=== PATIENT | male | born 1940 | race Caucasian/White ===

== ENCOUNTER → 2016-06-20 | Outpatient (CLI) | payer BC ==
[~2016-06-20] MED LIST: SIMV5TAB2 PO; SULF800T23 PO; ZNTT/150 PO; ZYRUNK; [UNRECOGNIZED DRUG - REMARK]
[2016-06-20 09:46] LABS: BASO % 0.8 %; BASO ABS # 0.04 K/uL (0-0.2); COMPLETE YES; EOS % 2.7 %; HEMATOCRIT 44.7 % (42-52); LYMPH % 28.8 %; LYMPH ABS # 1.41 K/uL (1.2-3.4); MEAN CELL VOLUME 90.3 fL (80-100); MEAN CORPUSCULAR HEMOGLOBIN 30.7 pg (25-34); NEUT % 57.7 %; PLATELET COUNT 188 K/uL (130-400); RED BLOOD COUNT 4.95 M/uL (4.7-6.1); WHITE BLOOD COUNT 4.89 K/uL (4.8-10.8)
[2016-06-20 10:05] LABS: CHOLESTEROL/HDL RATIO 2.5
[2016-06-20 10:09] LABS: ESTIMATED AVERAGE GLUCOSE 114 mg/dl; HA1C FLAG Normal (Normal)
--- NOTE | 2016-06-25 13:24 | CODING QUERY MEDICAL NECESSITY ---
SUPPORTING DIAGNOSIS NEEDED A supporting diagnosis is required for the test/procedure performed on this patient in order for us to be reimbursed by the patient's insurance. Please provide a supporting diagnosis for the following test/procedure listed below next to the test name along with your signature. *If there is no additional diagnosis for this patient that would support the following test/procedure please document that below next to the test/procedure. Test(s)/Procedure(s) that require a supporting diagnosis: DOS 06/20 * Hba1c DIAGNOSIS: * Lipids DIAGNOSIS: Provider Signature: Date: Thank you Leonora Flor Health Information Management Once completed, please kindly fax back to [phone] For questions please call [phone]
== END | disposition home or self-care (01) ==
LOC: C.LAB1850 07:54
PROVIDERS: ATTEND Internal Medicine
DX: C67.9 Malignant neoplasm of bladder, unspecified (principal); R73.9 Hyperglycemia, unspecified; E78.00 Pure hypercholesterolemia, unspecified

== ENCOUNTER → 2016-07-03 | Outpatient (CLI) | payer BC | END | disposition home or self-care (01) | LOC: C.LAB1850 11:06 | PROVIDERS: ATTEND Urology | DX: R97.20 Elevated prostate specific antigen [PSA] (principal) ==

== ENCOUNTER 2016-08-02 09:29 | Emergency (ER) | payer BC ==
[~2016-08-02] VITALS: Ht 177.8 cm; Wt 88.4 kg
[~2016-08-02 09:29] MED LIST changes: -SIMV5TAB2 PO; -ZNTT/150 PO
[2016-08-02 09:34] VITALS: TEMP 37; Ht 177.8 cm; Wt 88.4 kg
[2016-08-02 10:22] LABS: BASO % 0.2 %; BASO ABS # 0.01 K/uL (0-0.2); COMPLETE YES; EOS % 1.6 %; LYMPH % 24.5 %; LYMPH ABS # 1.07 K/uL (1.2-3.4); MEAN CELL VOLUME 90.2 fL (80-100); MEAN CORPUSCULAR HEMOGLOBIN 30.7 pg (25-34); MEAN CORPUSCULAR HGB CONC 34.1 g/dl (32-36); MEAN PLATELET VOLUME 10.5 fL (7.4-10.4); MONO % 6.4 %; NEUT % 67.3 %; PLATELET COUNT 189 K/uL (130-400); RED BLOOD COUNT 4.88 M/uL (4.7-6.1); WHITE BLOOD COUNT 4.37 K/uL (4.8-10.8)
--- NOTE | 2016-08-02 10:22 | DIAGNOSTIC IMAGING REPORT ---
HEAD CT NONCONTRAST CT DOSE: 614.27 mGy.cm HISTORY: Pain. Neuropathy. left sided numbness TECHNIQUE: Multiaxial CT images of the head were performed without the use of intravenous contrast. Comparison: None. Findings: The paranasal sinuses and mastoid air cells are clear. The calvarium and skull base are intact. The ventricles and sulci are within normal limits. There is no mass, hematoma, midline shift, or acute infarct. Impression: No acute intracranial abnormality. Electronically signed by: Brian Hawkins M.D. 08/02/2016 10:21 AM Dictated Date/Time: 08/02/2016 10:20 AM
[2016-08-02 10:43] LABS: ALT/SGPT 31 U/L (12-78); AST/SGOT 22 U/L (15-37); BLOOD UREA NITROGEN 13 mg/dl (7-18); BUN/CREATININE RATIO 13.8 (10-20); CALCIUM 8.8 mg/dl (8.5-10.1); CARBON DIOXIDE 24 mmol/L (21-32); CHLORIDE 109 mmol/L (98-107); CREATININE 0.95 mg/dl (0.60-1.40); GLUCOSE 111 mg/dl (70-99); POTASSIUM 3.6 mmol/L (3.5-5.1); SODIUM 144 mmol/L (136-145)
--- NOTE | 2016-08-02 10:45 | DIAGNOSTIC IMAGING REPORT ---
TWO VIEW CHEST CLINICAL HISTORY: Left-sided numbness. FINDINGS: PA and lateral chest radiographs are obtained. No prior studies are available for comparison at the time of dictation. The heart is top normal for projection. There is elevation of the right hemidiaphragm with mild bibasilar atelectasis. No airspace consolidation is seen typical for pneumonia and there is no pleural effusion. No pneumothorax is identified. The skeletal structures are osteopenic. Mild degenerative change is noted in the thoracic spine. IMPRESSION: No active disease in the chest. Electronically signed by: Tk Loera M.D. 08/02/2016 10:43 AM Dictated Date/Time: 08/02/2016 10:42 AM
[2016-08-02 10:48] LABS: ALB/GLOB RATIO 1.2 (0.9-2); ALKALINE PHOSPHATASE 127 U/L (45-117)
[2016-08-02] MEDS ORDERED: ZNTT/150 PO (10:55)
[2016-08-02] MEDS ORDERED: SIMV5TAB2 PO (10:55)
--- NOTE | 2016-08-02 13:13 | EMERGENCY ROOM VISIT NOTE ---
History Report prepared by Stephon: Chanda Park Under the Supervision of: Dr. Vinh Spencer M.D. First contact with patient: 09:43 Chief Complaint: NEURO SYMPTOMS Stated Complaint: FACIAL NUMBNESS Nursing Triage Summary: Pt arrives via EMS from home Pt c/o left thight numbness that started last week Pt reports numbness is "creeping" up the left side of body all the way to left side of face saw chiropractor last week hx anxiety History of Present Illness The patient is a 76 year old male who presents to the Emergency Room with complaints of worsening neurological symptoms for the past week. 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 He picks her up multiples times a day to move her around the house. About a week ago he developed some left-sided back pain that he thought was probably due to lifting his . He had some numbness radiating into his left leg.. The patient saw his chiropractor for his symptoms who thought that his symptoms would improve with time. The patient states that his back pain has completely resolved. His numbness has worsened since seeing his chiropractor. The patient reports numbness radiating from his back all the way down his right leg and over the last few days he has had numbness radiating up into the right side of his face. Over the weekend the patient lost his front tooth. It was an implant that fell out. He has starting having some slurred speech but thought that it was due to his missing tooth. The patient denies any weakness or abdominal pain. He was brought to the ED by ambulance. Source of History: patient Onset: 1 week ago Position: other (global) Quality: other (neurological) Timing: worsening Associated Symptoms: + numbness, No abdominal pain, No back pain, No weakness Note: Pt reports some slurred speech. Review of Systems All systems have been listed, reviewed, and are negative other than those previously mentioned. Please see Additional Medical History Sheet. 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 Social History Smoking Status: Never Smoker Smokeless Tobacco Use: No Alcohol Use: none Marital Status: Housing Status: lives with significant other Occupation Status: retired Current/Historical Medications Scheduled Ranitidine (Zantac), 150 MG PO BID Simvastatin (Zocor), 5 MG PO QPM Allergies Coded Allergies: NO KNOWN DRUG ALLERGIES (Verified Allergy, Unknown, ., 08/02/16) Physical Exam Vital Signs Date Time Temp Pulse Resp B/P Pulse Ox O2 Delivery O2 Flow Rate FiO2 08/02/16 14:00 77 18 114/92 98 Room Air 08/02/16 11:43 75 18 125/95 98 Room Air 08/02/16 09:34 37.0 102 18 141/98 97 Room Air Physical Exam GENERAL: Patient awake, alert, oriented x 3. Patient follows commands. Patient does not appear toxic. Patient is adequately hydrated and well- nourished. SKIN: No erythema, pallor, cyanosis or rash HEENT: Normal head, pupils equal, reactive to light and accommodation. Ears normal. Oral cavity and posterior pharynx appear normal. Neck: Without adenopathy, no neck vein distention. LUNGS: Clear to auscultation. No wheezes, no rales, no rhonchi. HEART: No murmurs. No gallops. No rubs ABDOMEN: No masses, no rebound, no hepatomegaly or splenomegaly. EXTREMITIES: No signs of trauma. No pedal or pretibial edema. No calf or thigh tenderness. NEUROLOGIC: MARINA stroke score will be implemented by the nurse. Cranial nerves II -XII within normal limits. No gross motor sensory function deficits. Medical Decision & Procedures ER Provider Diagnostic Interpretation: Radiology results as stated below per my review and radiologist interpretation: HEAD CT NONCONTRAST CT DOSE: 614.27 mGy.cm HISTORY: Pain. Neuropathy. left sided numbness TECHNIQUE: Multiaxial CT images of the head were performed without the use of intravenous contrast. Comparison: None. Findings: The paranasal sinuses and mastoid air cells are clear. The calvarium and skull base are intact. The ventricles and sulci are within normal limits. There is no mass, hematoma, midline shift, or acute infarct. Impression: No acute intracranial abnormality. Electronically signed by: Brian Hawkins M.D. 08/02/2016 10:21 AM Dictated Date/Time: 08/02/2016 10:20 AM TWO VIEW CHEST CLINICAL HISTORY: Left-sided numbness. FINDINGS: PA and lateral chest radiographs are obtained. No prior studies are available for comparison at the time of dictation. The heart is top normal for projection. There is elevation of the right hemidiaphragm with mild bibasilar atelectasis. No airspace consolidation is seen typical for pneumonia and there is no pleural effusion. No pneumothorax is identified. The skeletal structures are osteopenic. Mild degenerative change is noted in the thoracic spine. IMPRESSION: No active disease in the chest. Electronically signed by: Tk Loera M.D. 08/02/2016 10:43 AM Dictated Date/Time: 08/02/2016 10:42 AM MR ANGIOGRAM OF THE BRAIN CLINICAL HISTORY: Left-sided weakness. Facial numbness. COMPARISON STUDY: MRI of the brain performed concurrently on 08/02/2016. TECHNIQUE: 3-D [id number] MR angiography of the intracranial circulation is performed. 3-D tumble views are created and assessed. IV contrast was not administered for this examination. FINDINGS: The internal carotid arteries are widely patent bilaterally, as are the anterior and middle cerebral arteries. The vertebrobasilar system and posterior cerebral arteries are widely patent. The left vertebral artery is dominant. There is no aneurysm, high-grade stenosis, or focal vessel cutoff seen throughout the intracranial circulation. The brain parenchyma is normal as visualized. IMPRESSION: Unremarkable MR angiogram of the brain. Electronically signed by: Tk Loera M.D. 08/02/2016 1:22 PM Dictated Date/Time: 08/02/2016 1:20 PM ULTRASOUND OF THE CAROTID ARTERIES CLINICAL HISTORY: Left-sided weakness. COMPARISON STUDY: No priors. TECHNIQUE: Real-time, grayscale, and color Doppler sonography of the carotid arteries is performed. Images are reviewed in the transverse and longitudinal planes. FINDINGS: Blood pressure in the right arm measures 158/94 and blood pressure in the left arm measures 144/87. The carotid arteries are patent bilaterally and demonstrate antegrade flow. There is minimal atherosclerotic plaque identified. Normal doppler arterial waveforms are seen throughout. Velocity measurements are listed below. Common carotid peak systolic velocity (cm/sec): RIGHT: 74 LEFT: 66 ICA proximal peak systolic velocity (cm/sec): RIGHT: 49 LEFT: 39 ICA mid peak systolic velocity (cm/sec): RIGHT: 50 LEFT: 50 ICA distal peak systolic velocity (cm/sec): RIGHT: 64 LEFT: 57 ICA/CC peak systolic ratio: RIGHT: 0.9 LEFT: 0.9 Antegrade flow was shown in the vertebral arteries. The external carotid arteries are patent. IMPRESSION: 1. There is no sonographic evidence of hemodynamically significant stenosis in the right or left carotid arterial system. 2. Antegrade flow is shown in the vertebral arteries. Electronically signed by: Tk Loera M.D. 08/02/2016 2:39 PM Dictated Date/Time: 08/02/2016 2:38 PM MRI OF THE BRAIN WITHOUT AND WITH IV CONTRAST CLINICAL HISTORY: left sided weakness neuropathy COMPARISON STUDY: No previous studies for comparison. TECHNIQUE: Utilizing a 1.5 Silvia magnet and dedicated coil, multiplanar, multiecho imaging of the brain was performed pre and postcontrast administration. IV administration of 8.5 mL of Gadavist contrast was uneventful. FINDINGS: No evidence for an acute ischemic insult. Several small foci of increased signal within the periventricular deep white matter regions. This is unremarkable for age and is consistent with minimal chronic small vessel change. No evidence for abnormal postcontrast enhancement. Ventricular system is midline. Sella and parasellar regions are unremarkable. IMPRESSION: 1. No evidence for an acute ischemic insult. 2. Negative MRI of the brain for age Electronically signed by: Brian Hawkins M.D. 08/02/2016 1:24 PM Dictated Date/Time: 08/02/2016 1:21 PM Laboratory Results 08/02/16 10:00 Red Blood Count 4.88, Mean Corpuscular Volume 90.2, Mean Corpuscular Hemoglobin 30.7, Mean Corpuscular Hemoglobin Concent 34.1, Mean Platelet Volume 10.5, Neutrophils (%) (Auto) 67.3, Lymphocytes (%) (Auto) 24.5, Monocytes (%) (Auto) 6.4, Eosinophils (%) (Auto) 1.6, Basophils (%) (Auto) 0.2, Neutrophils # (Auto) 2.94, Lymphocytes # (Auto) 1.07, Monocytes # (Auto) 0.28, Eosinophils # (Auto) 0.07, Basophils # (Auto) 0.01 08/02/16 10:00 Test 08/02/16 10:00 White Blood Count 4.37 K/uL (4.8-10.8) Red Blood Count 4.88 M/uL (4.7-6.1) Hemoglobin 15.0 g/dL (14.0-18.0) Hematocrit 44.0 % (42-52) Mean Corpuscular Volume 90.2 fL (80-100) Mean Corpuscular Hemoglobin 30.7 pg (25-34) Mean Corpuscular Hemoglobin Concent 34.1 g/dl (32-36) Platelet Count 189 K/uL (130-400) Mean Platelet Volume 10.5 fL (7.4-10.4) Neutrophils (%) (Auto) 67.3 % Lymphocytes (%) (Auto) 24.5 % Monocytes (%) (Auto) 6.4 % Eosinophils (%) (Auto) 1.6 % Basophils (%) (Auto) 0.2 % Neutrophils # (Auto) 2.94 K/uL (1.4-6.5) Lymphocytes # (Auto) 1.07 K/uL (1.2-3.4) Monocytes # (Auto) 0.28 K/uL (0.11-0.59) Eosinophils # (Auto) 0.07 K/uL (0-0.5) Basophils # (Auto) 0.01 K/uL (0-0.2) RDW Standard Deviation 43.4 fL (36.4-46.3) RDW Coefficient of Variation 13.1 % (11.5-14.5) Immature Granulocyte % (Auto) 0.0 % Immature Granulocyte # (Auto) 0.00 K/uL (0.00-0.02) Anion Gap 11.0 mmol/L (3-11) Est Creatinine Clear Calc Drug Dose 75.2 ml/min Estimated GFR () 90.4 Estimated GFR (Non- 78.0 BUN/Creatinine Ratio 13.8 (10-20) Calcium Level 8.8 mg/dl (8.5-10.1) Total Bilirubin 0.7 mg/dl (0.2-1) Aspartate Amino Transf (AST/SGOT) 22 U/L (15-37) Alanine Aminotransferase (ALT/SGPT) 31 U/L (12-78) Alkaline Phosphatase 127 U/L (45-117) Troponin I < 0.015 ng/ml (0-0.045) Total Protein 6.7 gm/dl (6.4-8.2) Albumin 3.6 gm/dl (3.4-5.0) Globulin 3.1 gm/dl (2.5-4.0) Albumin/Globulin Ratio 1.2 (0.9-2) Laboratory results as stated above per my review. ECG Indication: other (stroke-like) Rate (beats per minute): 94 Rhythm: normal sinus Findings: no acute ischemic change, no ectopy ED Course 0943: Past medical records reviewed. The patient was evaluated in room B7. A complete history and physical examination was performed. 1129: I reassessed the patient at this time. He is doing well. I updated him on the results. He will be getting an MRI, MRA, and carotid US today. 1515: I reassessed the patient at this time. He is feeling better and resting comfortably. His facial numbness has completely resolved. I discussed the results and treatment plan with the patient. I answered all pertaining questions that he had. He expressed understanding and verbalized agreement. The patient will be discharged home. He was encouraged to follow-up with his PCP. Medical Decision Differential diagnoses TIA, CVA, cervical radiculopathy, low back pain. The patient is here with left facial numbness which extends that his left arm. There is also some question of garbled speech. All of those symptoms resolved while here in the ED. The patient had multiple labs and imaging performed. Prior to some of the more extensive imaging I did request that the patient be admitted but he declined saying that he had to take care of his at home. The patient will be started on baby aspirin. He is to follow up closely with his family physician. I remain concerned about a possible stroke in the near future. This was conveyed to the patient and his son. I again offered admission after completion of his studies but again he declined. Impression Primary Impression: Transient ischemic attack Scribe Attestation The scribe's documentation has been prepared under my direction and personally reviewed by me in its entirety. I confirm that the note above accurately reflects all work, treatment, procedures, and medical decision making performed by me. Departure Information Dispostion Home / Self-Care Referrals Julián Damon M.D. (PCP) Forms HOME CARE DOCUMENTATION FORM, IMPORTANT VISIT INFORMATION, WORK / SCHOOL INSTRUCTIONS Patient Instructions My [facility], TIA Additional Instructions 81 mg of aspirin daily. Continue your other current medications as prescribed. Follow-up with Dr. Damon within the next several days. Return here sooner if any of your symptoms get worse. Problem Qualifiers Primary Impression: Transient ischemic attack Transient cerebral ischemia type: unspecified Qualified Codes: G45.9 - Transient cerebral ischemic attack, unspecified
[2016-08-02] MEDS ORDERED: GADAVIST IV PRN (13:15)
--- NOTE | 2016-08-02 13:24 | DIAGNOSTIC IMAGING REPORT ---
MR ANGIOGRAM OF THE BRAIN CLINICAL HISTORY: Left-sided weakness. Facial numbness. COMPARISON STUDY: MRI of the brain performed concurrently on 08/02/2016. TECHNIQUE: 3-D [id number] MR angiography of the intracranial circulation is performed. 3-D tumble views are created and assessed. IV contrast was not administered for this examination. FINDINGS: The internal carotid arteries are widely patent bilaterally, as are the anterior and middle cerebral arteries. The vertebrobasilar system and posterior cerebral arteries are widely patent. The left vertebral artery is dominant. There is no aneurysm, high-grade stenosis, or focal vessel cutoff seen throughout the intracranial circulation. The brain parenchyma is normal as visualized. IMPRESSION: Unremarkable MR angiogram of the brain. Electronically signed by: Tk Loera M.D. 08/02/2016 1:22 PM Dictated Date/Time: 08/02/2016 1:20 PM
--- NOTE | 2016-08-02 13:26 | DIAGNOSTIC IMAGING REPORT ---
MRI OF THE BRAIN WITHOUT AND WITH IV CONTRAST CLINICAL HISTORY: left sided weakness neuropathy COMPARISON STUDY: No previous studies for comparison. TECHNIQUE: Utilizing a 1.5 Silvia magnet and dedicated coil, multiplanar, multiecho imaging of the brain was performed pre and postcontrast administration. IV administration of 8.5 mL of Gadavist contrast was uneventful. FINDINGS: No evidence for an acute ischemic insult. Several small foci of increased signal within the periventricular deep white matter regions. This is unremarkable for age and is consistent with minimal chronic small vessel change. No evidence for abnormal postcontrast enhancement. Ventricular system is midline. Sella and parasellar regions are unremarkable. IMPRESSION: 1. No evidence for an acute ischemic insult. 2. Negative MRI of the brain for age Electronically signed by: Brian Hawkins M.D. 08/02/2016 1:24 PM Dictated Date/Time: 08/02/2016 1:21 PM
--- NOTE | 2016-08-02 14:40 | DIAGNOSTIC IMAGING REPORT ---
ULTRASOUND OF THE CAROTID ARTERIES CLINICAL HISTORY: Left-sided weakness. COMPARISON STUDY: No priors. TECHNIQUE: Real-time, grayscale, and color Doppler sonography of the carotid arteries is performed. Images are reviewed in the transverse and longitudinal planes. FINDINGS: Blood pressure in the right arm measures 158/94 and blood pressure in the left arm measures 144/87. The carotid arteries are patent bilaterally and demonstrate antegrade flow. There is minimal atherosclerotic plaque identified. Normal doppler arterial waveforms are seen throughout. Velocity measurements are listed below. Common carotid peak systolic velocity (cm/sec): RIGHT: 74 LEFT: 66 ICA proximal peak systolic velocity (cm/sec): RIGHT: 49 LEFT: 39 ICA mid peak systolic velocity (cm/sec): RIGHT: 50 LEFT: 50 ICA distal peak systolic velocity (cm/sec): RIGHT: 64 LEFT: 57 ICA/CC peak systolic ratio: RIGHT: 0.9 LEFT: 0.9 Antegrade flow was shown in the vertebral arteries. The external carotid arteries are patent. IMPRESSION: 1. There is no sonographic evidence of hemodynamically significant stenosis in the right or left carotid arterial system. 2. Antegrade flow is shown in the vertebral arteries. Electronically signed by: Tk Loera M.D. 08/02/2016 2:39 PM Dictated Date/Time: 08/02/2016 2:38 PM
[2016-08-02 15:32] VITALS: BP 142/95; PULSE 85; O2SAT 100
== END 2016-08-02 15:42 | disposition home or self-care (01) ==
LOC: EDBD 09:29 → C.EDB 09:31
DX: G45.9 Transient cerebral ischemic attack, unspecified (principal); G30.9 Alzheimer's disease, unspecified; F02.80 Dementia in other diseases classified elsewhere, unspecified severity, without behavioral disturbance, psychotic disturbance, mood disturbance, and anxiety; E78.00 Pure hypercholesterolemia, unspecified; K21.9 Gastro-esophageal reflux disease without esophagitis; N40.0 Benign prostatic hyperplasia without lower urinary tract symptoms; Z85.51 Personal history of malignant neoplasm of bladder

== ENCOUNTER → 2016-08-03 | Outpatient (CLI) | payer BC ==
[~2016-08-03] MED LIST changes: +SIMV5TAB2 PO; -SULF800T23 PO; +ZNTT/150 PO; -ZYRUNK; -[UNRECOGNIZED DRUG - REMARK]
[2016-08-03 15:11] LABS: ARTERIAL BLD GAS O2 SATURATION 97.6 % (90-95); ARTERIAL BLOOD GAS BASE EXCESS 1.8 mEq/L (-9-1.8); ARTERIAL BLOOD GAS HCO3 25 mmol/L (19-24); ARTERIAL BLOOD GAS PO2 93 mm/Hg (80-95); ARTERIAL BLOOD GAS pH 7.49 (7.35-7.45)
[2016-08-03 15:55] LABS: ALLEN TEST POS (POS); O2 ADMINISTRATION RA
== END | disposition home or self-care (01) ==
LOC: C.LAB 14:28
PROVIDERS: ATTEND Internal Medicine
DX: Z00.00 Encounter for general adult medical examination without abnormal findings (principal); R20.0 Anesthesia of skin

== ENCOUNTER → 2016-12-28 | Outpatient (CLI) | payer BC ==
[2016-12-28 09:36] LABS: BASO % 0.6 %; BASO ABS # 0.03 K/uL (0-0.2); COMPLETE YES; HEMATOCRIT 46.8 % (42-52); IG% 0.2 %; LYMPH % 30.7 %; LYMPH ABS # 1.61 K/uL (1.2-3.4); MEAN CELL VOLUME 92.9 fL (80-100); MEAN CORPUSCULAR HEMOGLOBIN 29.8 pg (25-34); MEAN CORPUSCULAR HGB CONC 32.1 g/dl (32-36); MEAN PLATELET VOLUME 10.8 fL (7.4-10.4); MONO % 8.2 %; NEUT % 55.3 %; PLATELET COUNT 210 K/uL (130-400); RED BLOOD COUNT 5.04 M/uL (4.7-6.1); WHITE BLOOD COUNT 5.25 K/uL (4.8-10.8)
[2016-12-28 09:50] LABS: ESTIMATED AVERAGE GLUCOSE 111 mg/dl; HA1C FLAG Normal (Normal)
[2016-12-28 10:20] LABS: ALT/SGPT 34 U/L (12-78); AST/SGOT 20 U/L (15-37); BLOOD UREA NITROGEN 17 mg/dl (7-18); BUN/CREATININE RATIO 19.6 (10-20); CALCIUM 8.7 mg/dl (8.5-10.1); CARBON DIOXIDE 30 mmol/L (21-32); CHLORIDE 110 mmol/L (98-107); CREATININE 0.89 mg/dl (0.60-1.40); GLUCOSE 85 mg/dl (70-99); POTASSIUM 3.7 mmol/L (3.5-5.1); SODIUM 145 mmol/L (136-145)
[2016-12-28 10:24] LABS: CHOLESTEROL 131 mg/dl (0-200); CHOLESTEROL/HDL RATIO 2.3; HDL CHOLESTEROL 56 mg/dl; LDL CHOLESTEROL CALCULATED 64 mg/dl; TRIGLYCERIDES 54 mg/dl (0-150); VERY LOW DENSITY LIPOPROT CALC 11 mg/dl
--- NOTE | 2017-01-14 10:56 | CODING QUERY MEDICAL NECESSITY ---
SUPPORTING DIAGNOSIS NEEDED Dr. Damon, A supporting diagnosis is required for the test/procedure performed on this patient in order for us to be reimbursed by the patient's insurance. Please provide a supporting diagnosis for the following test/procedure listed below next to the test name along with your signature. *If there is no additional diagnosis for this patient that would support the following test/procedure please document that below next to the test/procedure. Test(s)/Procedure(s) that require a supporting diagnosis: * 84125 GLYCATED HEMOGLOBIN DIAGNOSIS: DATE OF SERVICE: 12/28/16 Provider Signature: Date: Thank you Billy Thomson [facility] Information Management Once completed, please kindly fax back to [phone] For questions please call [phone]
== END | disposition home or self-care (01) ==
LOC: C.LAB1850 07:02
PROVIDERS: ATTEND Internal Medicine
DX: R97.20 Elevated prostate specific antigen [PSA] (principal); E78.00 Pure hypercholesterolemia, unspecified; R73.9 Hyperglycemia, unspecified

== ENCOUNTER → 2017-06-07 | Outpatient (CLI) | payer BC ==
[2017-06-07 09:37] LABS: BASO % 0.4 %; BASO ABS # 0.02 K/uL (0-0.2); EOS % 2.8 %; EOS ABS # 0.15 K/uL (0-0.5); HEMATOCRIT 43.2 % (42-52); HEMOGLOBIN 14.6 g/dL (14.0-18.0); IG# 0.01 K/uL (0.00-0.02); LYMPH % 23.3 %; LYMPH ABS # 1.26 K/uL (1.2-3.4); MEAN CELL VOLUME 91.1 fL (80-100); MEAN CORPUSCULAR HEMOGLOBIN 30.8 pg (25-34); MEAN CORPUSCULAR HGB CONC 33.8 g/dl (32-36); MEAN PLATELET VOLUME 10.6 fL (7.4-10.4); MONO % 8.1 %; MONO ABS # 0.44 K/uL (0.11-0.59); NEUT % 65.2 %; NEUT ABS # 3.52 K/uL (1.4-6.5); PLATELET COUNT 226 K/uL (130-400); RED CELL DISTRIBUTION WIDTH CV 12.9 % (11.5-14.5); RED CELL DISTRIBUTION WIDTH SD 43.1 fL (36.4-46.3)
[2017-06-07 10:01] LABS: ALT/SGPT 22 U/L (12-78); AST/SGOT 12 U/L (15-37); BLOOD UREA NITROGEN 14 mg/dl (7-18); CALCIUM 8.5 mg/dl (8.5-10.1); CARBON DIOXIDE 30 mmol/L (21-32); CREATININE 0.87 mg/dl (0.60-1.40); GLUCOSE 91 mg/dl (70-99); POTASSIUM 3.7 mmol/L (3.5-5.1); SODIUM 141 mmol/L (136-145)
[2017-06-07 10:06] LABS: CHOLESTEROL 120 mg/dl (0-200); LDL CHOLESTEROL CALCULATED 59 mg/dl
== END | disposition home or self-care (01) ==
LOC: C.LAB1850 07:47
PROVIDERS: ATTEND Internal Medicine
DX: C67.9 Malignant neoplasm of bladder, unspecified (principal); N40.1 Benign prostatic hyperplasia with lower urinary tract symptoms; E78.00 Pure hypercholesterolemia, unspecified

== ENCOUNTER → 2017-08-19 | Day surgery (SDC) | payer BC ==
[2017-08-08 10:51] VITALS: BMI 26.0
[~2017-08-19] VITALS: Ht 177.8 cm; Wt 84.1 kg
[~2017-08-19] MED LIST changes: +ASPCH81X PO; +LIDOCAINE HCL 2% 2 ML VIAL (20MG/ML) ONE; +PANT40TA PO; +PROPOFOL IV EMULSION 10 MG/ML 20 ML VIAL IV ONE; +RANI300T2 PO; +SIMV20TA2 PO; -SIMV5TAB2 PO; +SODIUM CHLORIDE 0.9% 500ML 500 ML IV ONE; -ZNTT/150 PO
[2017-08-19 09:46] VITALS: Ht 177.8 cm; Wt 84.1 kg
--- NOTE | 2017-08-19 10:16 | Endo History and Physical ---
History & Physical Date of Service: Aug 19, 2017. Chief Complaint: REFLUX Referring Physician: DR KLEIN History of Present Illness 77 yo CM who presents for EGD secondary to GERD. Past Surgical History Hx Cardiac Surgery: No Hx Internal Defibrillator: No Hx Pacemaker: No Hx Abdominal Surgery: No Hx of Implantable Prosthesis: No Hx Post-Op Nausea and Vomiting: No Hx Cancer Surgery: No Hx Thoracic Surgery: No Hx Orthopedic: No Hx Urinary Tract Surgery: No Family History None Social History Smoking Status: Never Smoker Hx Substance Use: No Hx Alcohol Use: No Allergies Coded Allergies: NO KNOWN DRUG ALLERGIES (Verified Allergy, Unknown, ., 08/19/17) Current Medications Reported Home Medications Medications Dose Route/Sig Max Daily Dose Days Date Category Zocor (Simvastatin) 20 Mg Tab 20 Mg PO QAM 08/08/17 Reported Zantac (Ranitidine HCl) 300 Mg Tab 300 Mg PO QAM 08/08/17 Reported Protonix (Pantoprazole Sodium) 40 Mg Tab 40 Mg PO HS 08/08/17 Reported Aspirin Chewable (Aspirin) 81 Mg Chew 81 Mg PO HS 08/08/17 Reported Vital Signs Weight (Kilograms): 84.09 Height (Feet): 5 Height (Inches): 10 Date Time Temp Pulse Resp B/P (MAP) Pulse Ox O2 Delivery O2 Flow Rate FiO2 08/19/17 09:51 36.8 64 20 130/77 (94) 99 Room Air Physical Exam General Appearance: WD/WN, no apparent distress Respiratory/Chest: Auscultation: breath sounds normal Cardiovascular: Heart Auscultation: RRR Abdomen: Bowel Sounds: normal Inspection & Palpation: soft, non-distended, no tenderness, guarding & rebound Assessment and Plan Assessment: 77 yo CM who presents for EGD secondary to GERD. Plan: Proceed with EGD.
--- NOTE | 2017-08-19 10:38 | Discharge Instructions ---
Endoscopy Patient Instructions Date / Procedure(s) Performed Aug 19, 2017. EGD Allergy Information Coded Allergies: NO KNOWN DRUG ALLERGIES (Verified Allergy, Unknown, ., 08/19/17) Discharge Date / Findings Aug 19, 2017. Gastric antrum biopsies Distal esophagus biopsies Medication Instructions OK to resume all medications today as prescribed Provider Instructions Activity Restrictions - No exercising or heavy lifting for 24 hours. - Do not drink alcohol the day of the procedure. - Do not drive a car or operate machinery until the day after the procedure. - Do not make any important decisions or sign important papers in 24 hours after the procedure. Following Day: - Return to full activity which may include returning to work/school. Diet Start your diet with liquids and light foods (jello, soup, juice, toast). Then eat your usual diet if not nauseated. Treatment For Common After Affects For mild abdominal pain, bloating, or excessive gas: - Rest - Eat lightly - Lie on right side Follow-Up Information Follow-up with DR KLEIN as scheduled Anesthesia Information What You Should Know You have had a procedure that required some medicine to reduce anxiety and discomfort. This treatment is called moderate sedation. After receiving the treatment, you may be sleepy, but you will be able to breathe on your own. The effects of the treatment may last for several hours. Follow these instructions along with Activity/Diet recommendations noted above: * Do NOT do anything where dizziness or clumsiness would be dangerous. * Rest quietly at home today, then you can be up and about tomorrow. * Have a responsible person stay with you the rest of today. * You may have had an I.V. today. If so, you may take the dressing off later today. Recommendations Call your doctor if: * Trouble breathing * Continuous vomiting for more than 24 hours * Temperature above 101 degrees * Severe abdominal pain or bloating * Pain not relieved by pain medicine ordered * There is increased drainage or redness from any incision * A large amount of rectal bleeding greater than 2-3 tablespoons. (If you had a polyp/s removed or have hemorrhoids, a small amount of blood - from the rectum is to be expected.) * You have any unanswered questions or concerns. IN THE EVENT OF A SERIOUS EMERGENCY, GO TO THE NEAREST EMERGENCY ROOM Your discharge instructions were prepared by provider Keo Carrasquillo. Patient Instructions Signature Page Jamel Crawley Patient (or Guardian) Signature/Date: I have read and understand the instructions given to me by my caregivers. Caregiver/RN/Doctor Signature/Date: The above-named patient and/or guardian has received patient instructions on this date. + Original Patient Signature Page (only) stays with chart. Please make copy for patient.
--- NOTE | 2017-08-19 10:43 | GI REPORT ---
Procedure Date: 08/19/2017 10:07 AM Procedure: Upper GI endoscopy Indications: Gastro-esophageal reflux disease Medicines: Monitored Anesthesia Care Complications: No immediate complications. Estimated Blood Loss: Estimated blood loss: none. Procedure: Pre-Anesthesia Assessment: - Prior to the procedure, a History and Physical was performed, and patient medications and allergies were reviewed. The patient's tolerance of previous anesthesia was also reviewed. The risks and benefits of the procedure and the sedation options and risks were discussed with the patient. All questions were answered, and informed consent was obtained. Prior Anticoagulants: The patient has taken aspirin, last dose was 1 day prior to procedure. ASA Grade Assessment: III - A patient with severe systemic disease. After reviewing the risks and benefits, the patient was deemed in satisfactory condition to undergo the procedure. After obtaining informed consent, the endoscope was passed under direct vision. Throughout the procedure, the patient's blood pressure, pulse, and oxygen saturations were monitored continuously. The scope was introduced through the mouth, and advanced to the second part of duodenum. The upper GI endoscopy was accomplished without difficulty. The patient tolerated the procedure well. Findings: The examined esophagus was normal. Multiple biopsies were obtained in the distal esophagus with cold forceps for histology. The entire examined stomach was normal. Multiple biopsies were obtained in the gastric antrum with cold forceps for histology. The examined duodenum was normal. Impression: - Normal esophagus. - Normal stomach. - Normal examined duodenum. - Multiple biopsies were obtained in the distal esophagus. - Multiple biopsies were obtained in the gastric antrum. Recommendation: - Resume previous diet. - Continue present medications. - Await pathology results. - Return to primary care physician as previously scheduled. Keo Carrasquillo, 08/19/2017 10:43:16 AM This report has been signed electronically. Note Initiated On: 08/19/2017 10:07 AM I attest to the content of the Intraoperative Record and orders documented therein, exceptions below
--- NOTE | 2017-08-19 10:56 | Anesthesiology Progress Note ---
Anesthesia Post Op Note Date & Time Aug 19, 2017 at 10:56 Vital Signs Pain Intensity: 0 Vital Signs Past 12 Hours Date Time Temp Pulse Resp B/P (MAP) Pulse Ox O2 Delivery O2 Flow Rate FiO2 08/19/17 10:52 78 20 129/90 (103) 97 Room Air 08/19/17 10:36 63 20 100/62 (75) 95 Room Air 08/19/17 09:51 36.8 64 20 130/77 (94) 99 Room Air Notes Mental Status: alert / awake / arousable, participated in evaluation Pt Amnestic to Procedure: Yes Nausea / Vomiting: adequately controlled Pain: adequately controlled Airway Patency, RR, SpO2: stable & adequate BP & HR: stable & adequate Hydration State: stable & adequate Anesthetic Complications: no major complications apparent
[2017-08-19 11:08] VITALS: BP 135/89; PULSE 76; O2SAT 100
== END | disposition home or self-care (01) ==
LOC: C.GI 08:59
PROVIDERS: ATTEND Internal Medicine
DX: K29.50 Unspecified chronic gastritis without bleeding (principal); K21.9 Gastro-esophageal reflux disease without esophagitis; Z86.73 Personal history of transient ischemic attack (TIA), and cerebral infarction without residual deficits; Z85.51 Personal history of malignant neoplasm of bladder; Z79.82 Long term (current) use of aspirin

== ENCOUNTER → 2017-08-27 | Outpatient (CLI) | payer BC ==
[~2017-08-27] MED LIST changes: -LIDOCAINE HCL 2% 2 ML VIAL (20MG/ML) ONE; -PROPOFOL IV EMULSION 10 MG/ML 20 ML VIAL IV ONE; -SODIUM CHLORIDE 0.9% 500ML 500 ML IV ONE
--- NOTE | 2017-08-27 15:38 | DIAGNOSTIC IMAGING REPORT ---
L-SPINE MIN 4 VIEWS ROUTINE CLINICAL HISTORY: Acute low back pain with left-sided sciatica. COMPARISON: None FINDINGS: There is mild leftward curvature of the lumbar spine. Vertebral body heights are maintained. There is no fracture or suspicious lesion. There is moderate disc space narrowing and osteophytosis at L4-L5 and L5-S1. There is moderate multilevel facet arthrosis. IMPRESSION: 1. No lumbar spine fracture. 2. Moderate degenerative disc disease at L4-L5 and L5-S1 with moderate multilevel facet arthrosis. 3. Mild leftward curvature of the lumbar spine. Electronically signed by: Xiang Osorio M.D. 08/27/2017 3:37 PM Dictated Date/Time: 08/27/2017 3:32 PM
== END | disposition home or self-care (01) ==
LOC: C.RAD1850 14:38
PROVIDERS: ATTEND Internal Medicine
DX: M54.42 Lumbago with sciatica, left side (principal); M51.36 Other intervertebral disc degeneration, lumbar region

== ENCOUNTER → 2017-10-02 | Day surgery (SDC) | payer BC ==
[2017-09-27 07:53] VITALS: Ht 177.8 cm; Wt 84.1 kg
[~2017-10-02] VITALS: Ht 177.8 cm; Wt 84.1 kg
[~2017-10-02] MED LIST changes: +GABA-113 PO; +IOPAMIDOL INJ 61% 15 ML VIAL ONE; +LIDOCAINE HCL 1% MPF 5 ML VIAL ONE; +SODIUM CHLORIDE 0.9% INJ 10 ML VIAL ONE
--- NOTE | 2017-10-02 15:33 | History & Physical Bridge - [place] ---
H&P Re-Evaluation Bridge Note: I have examined the patient, reviewed the History & Physical and in the interval since the performance of the History & Physical I have noted the following changes of clinical significance: No changes noted
--- NOTE | 2017-10-02 15:53 | [facility] Post Operative Brief Note ---
Immediate Operative Summary Operative Date October 02, 2017. 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 [place] FUENTES Spinneret Cleaner Surgeon(s) NONE Estimated Blood Loss 0 Findings Consistent with Post-Op Diagnosis Specimens NA Drains None Anesthesia Type Local Complication(s) none Disposition Disposition:
--- NOTE | 2017-10-02 15:54 | Discharge Instructions ---
Discharge Instructions Date of Service October 02, 2017. Visit Reason for Visit: Lumbar Radiculopathy Discharge Discharge Diagnosis / Problem: left leg pain Discharge Goals Goal(s): Decrease discomfort, Improve function Medications Stopped Medications Name(s): ASA- LAST DOSE 1 WEEK AGO Activity Recommendations Activity Limitations: resume your previous activity Anesthesia . Post Anesthesia Instructions: If you have had General Anesthesia or IV Sedation: * Do not drive today. * Resume driving when surgeon permits. * Do not make important decisions or sign legal documents today. * Call surgeon for: 1. Temperature elevations greater than 101 degrees F. 2. Uncontrollable pain. 3. Excessive bleeding. 4. Persistent nausea and vomiting. 5. Medication intolerance (nausea, vomiting or rash). * For nausea and vomiting use only clear liquids such as: tea, soda, bouillon until nausea subsides, then gradually increase diet as tolerated. * If you have any concerns or questions, call your surgeon's office. If physician is unavailable and it is an emergency, call 911 or go to the nearest emergency room. . Diet Recommendations Recommended Home Diet: resume previous diet Procedures Procedures Performed: LUMBAR EPIDURAL STEROID INJECTION Pending Studies Studies pending at discharge: no Medical Emergencies . Who to Call and When: Medical Emergencies: If at any time you feel your situation is an emergency, please call 911 immediately. . Non-Emergent Contact Non-Emergency issues call your: Specialist . . "Provider Documentation" section prepared by Juan J Dodson. .
[2017-10-02 16:16] VITALS: BP 127/98; PULSE 96; O2SAT 96
--- NOTE | 2017-10-02 23:37 | OPERATIVE REPORT ---
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 PROCEDURE: Left paramedian L5-S1 intralaminar epidural steroid injection under fluoroscopic guidance. INDICATIONS: The patient is a 77-year-old white male who has had a few week history of intense low back pain and left leg pain. He responded transiently to oral prednisone taper. 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 PHYSICAL EXAMINATION: Pleasant male seated comfortably. He has normal lower extremity strength. Negative seated straight leg raises, intact sensation distally. Mild sensitivity to palpation of left sciatic notch. CONSENT: Verbal and written consent was obtained from the patient. Risks and benefits were reviewed. Risks include but are not limited to epidural abscess, epidural hematoma, allergic reaction, dural puncture. The patient wishes to proceed. PROCEDURE: The patient was taken back to the special procedures room of the [facility]. He was maintained in a prone position. Backside was cleansed with Betadine x3 and a dry sterile dressing was applied. Fluoroscope was used to identify the L5-S1 intralaminar space. Overlying skin was anesthetized with 4 mL of lidocaine 1% with a 25 gauge 1.5-inch needle. A 22-gauge 3-1/2 inch Tuohy needle was then directed down towards the intralaminar space. It was advanced under lateral fluoroscopic guidance and loss of resistance was noted at a depth of 6 cm. Isovue-300 contrast 1 mL was injected and which demonstrated epidural uptake pattern which was confirmed with both AP and lateral views then underwent injection after negative aspiration of 40 mg of Depo-Medrol, 4 mL of preservative free sodium chloride. Injection was well tolerated. DISPOSITION: 1. The patient is taken out into the discharge recovery area, where he will be discharged home once discharge criteria have been met. 2. Follow up in the [facility] office in 4 weeks' time. I attest to the content of the Intraoperative Record and any orders documented therein. Any exception s are noted below.
== END | disposition home or self-care (01) ==
LOC: X.SURG 14:05
PROVIDERS: ATTEND Physical Medicine & Rehabilitation
DX: M48.061 Spinal stenosis, lumbar region without neurogenic claudication (principal); M54.17 Radiculopathy, lumbosacral region; K21.9 Gastro-esophageal reflux disease without esophagitis; E78.5 Hyperlipidemia, unspecified